=== PATIENT | male | born 1960 | race Caucasian/White ===

== ENCOUNTER → 2020-11-08 | Outpatient (CLI) | payer BC ==
--- NOTE | 2020-11-08 14:10 | Diagnostic Imaging Report ---
Indication: Chronic cough. No prior studies are available for comparison. Heart size normal. There is an area of linear atelectasis or scarring in the left base. Otherwise the lungs are clear. The pulmonary vascularity is normal. There is no effusion or pneumothorax. IMPRESSION: Linear scarring or atelectasis in the lingula. No other significant abnormality is detected. Dictated by: Dictated on workstation # [id number]
== END ==
LOC: RAD 13:02
PROVIDERS: ATTEND Internal Medicine
DX: R05 Cough (principal)
CPT/HCPCS: 71046

== ENCOUNTER 2021-05-08 05:35 | Outpatient (CLI) | payer BC ==
[~2021-05-08] VITALS: Ht 185.5 cm; Wt 86.3 kg
[2021-05-08] MEDS ORDERED: LOSA1TAB20 PO (10:36)
[2021-05-08] MEDS ORDERED: OMEP20CA18 PO (10:36)
[2021-05-08] MEDS ORDERED: ATOR20TA66 PO (10:36)
== END 2021-05-08 14:05 ==
LOC: PREOP 05:35
PROVIDERS: ATTEND Internal Medicine
DX: Z01.818 Encounter for other preprocedural examination (principal)

== ENCOUNTER 2021-05-16 08:18 | Day surgery (SDC) | payer BC ==
--- NOTE | 2021-05-08 06:32 | HISTORY AND PHYSICAL ---
DATE OF SERVICE: COLONOSCOPY HISTORY AND PHYSICAL HISTORY OF PRESENT ILLNESS: The patient a 61-year-old white male referred by Dr. Aguayo for screening colonoscopy. He is not aware of any family history for colon cancer, so he is deemed to be of average risk. He reports that he generally feels well. He has had no bowel habit change. Denies melena, bright red blood per rectum or abdominal pain. He denies any problems with reflux. PAST MEDICAL HISTORY: Significant for hypertension, mixed hyperlipidemia without evidence for vascular disease and psoriasis. 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 Has a 40+ pack year smoking history, continues to smoke. Reports curtailed alcohol use 6 years ago. MEDICATIONS ON ADMISSION: Include omeprazole 20 mg daily, losartan/HCT 50/25 and simvastatin 20 mg daily. ALLERGIES: He reports no known drug allergies. FAMILY HISTORY: Father of apparent complications of aneurysm likely rupture of abdominal aneurysm, after heunderwent repair of a thoracic aortic aneurysm. He also had a history of lymphoma. REVIEW OF SYSTEMS: CONSTITUTIONAL: Denies night sweats, chills, fever, or change in weight. GASTROINTESTINAL: As noted in the HPI. PULMONARY: Denies cough, shortness of breath or wheezing. CARDIOVASCULAR: Denies chest pain, orthopnea, PND, pedal edema or syncope. PHYSICAL EXAMINATION: GENERAL: Reveals white male, appeared to be in no acute distress. VITAL SIGNS: Weight 191 pounds, blood pressure 130/80. HEENT: Unremarkable. Sclerae nonicteric. CHEST: Clear to auscultation. CARDIOVASCULAR: Reveals a regular rate and rhythm, very soft 1 to 2/6 systolic ejection murmur heard best over the aortic outflow tract without evidence for pulsus, parvus or tardus. No S3 or S4 noted. ABDOMEN: Soft, supple without mass, organomegaly or tenderness. No evidence for abdominal aortic aneurysm to palpation noted. No pain noted. No bruits noted. Bowel sounds positive in all 4 quadrants. EXTREMITIES: Reveal no cyanosis, clubbing or edema. ASSESSMENT AND PLAN: The patient is set up for screening colonoscopy. Prep instructions were given and questions were answered. I thank you for the referral of this pleasant gentleman. Job ID: [id number] DocumentID: [id number] Dictated Date: 05/01/2021 15:58:47 Make Ready Worker Date: 05/01/2021 17:11:57 Dictated By: TAVON VELASQUEZ MD MTDD
[~2021-05-16] VITALS: Ht 185.5 cm; Wt 86.3 kg
[2021-05-16] VITALS (7 sets, daily range): BP systolic 98–166; BP diastolic 60–93
[~2021-05-16 08:18] MED LIST: ATOR20TA66 PO; LOSA1TAB20 PO; OMEP20CA18 PO
[2021-05-16] MEDS ORDERED: LACTATED RINGERS 1,000 ML IV STA ×2 (08:22→08:31)
[2021-05-16] MEDS ORDERED: LIDOCAINE JELLY 2% 6 ML SYRINGE MM PRN ×2 (08:30→08:45)
[2021-05-16] MEDS ORDERED: LACTATED RINGERS 1,000 ML IV ONE (08:32)
[2021-05-16] MEDS ORDERED: PROPOFOL INJECTION 50 ML IV ONE (10:15)
--- NOTE | 2021-05-16 11:10 | Pre-Op Note & Conscious Sedat ---
Pre-Operative Progress Note H&P Reviewed The H&P was reviewed, patient examined and no changes noted. Date H&P Reviewed: May 16, 2021 Time H&P Reviewed: 09:30 Conscious Sedation Pre-Proced ASA Score 2 For ASA 3 and 4: Consider anesthesia and medical clearance. Also, for patients with a history of failed moderate sedation consider anesthesia. Airway Lungs Heart ASA score ASA 1: a normal healthy patient ASA 2: a patient with a mild systemic disease (mid diabetes, controlled hypertension, obesity ASA 3: a patient with a severe systemic disease that limits activity (angina, COPD, prior Myocardial infarction) ASA 4: a patient with an incapacitating disease that is a constant threat to life (CHF, renal failure) ASA 5: a moribund patient not expected to survive 24 hrs. (ruptured aneurysm) ASA 6: a declared brain- patient whose organs are being harvested. For emergent operations, add the letter E after the classification Mallampati Classification Grade 2 Sedation Plan Analgesia, Amnesia, Plan communicated to team members, Discussed options with patient/fam, Discussed risks with patient/fam The patient is an appropriate candidate to undergo the planned procedure, sedation, and anesthesia. The patient immediately re-assessed prior to indication. TAVON VELASQUEZ MD May 16, 2021 11:10
--- NOTE | 2021-05-16 12:46 | Anesthesia-General Post-Op ---
MAC Patient Condition Mental Status/LOC: Same as Preop Cardiovascular: Satisfactory Nausea/Vomiting: Absent Respiratory: Satisfactory Pain: Controlled Complications: Absent Post Op Complications Complications None Follow Up Care/Instructions Patient Instructions None needed. Anesthesiology Discharge Order Discharge Order Patient is doing well, no complaints, stable vital signs, no apparent adverse anesthesia problems. No complications reported per nursing. THELMA BERNSTEIN CRNA May 16, 2021 12:46
--- NOTE | 2021-05-16 15:35 | OPERATIVE REPORT ---
DATE OF SERVICE: COLONOSCOPY SUMMARY INDICATION FOR THE PROCEDURE: Screening colonoscopy. DESCRIPTION OF PROCEDURE: The patient was placed in the left lateral decubitus position. Prior to undergoing colonoscopy, digital rectal evaluation was performed. Anal sphincter tone was normal and the perianal reflexes intact. The colonoscope was then inserted into the rectum and under direct visualization advanced to cecum. The cecum was identified by identification of the cecal strap. Photographic documentation was obtained. Quality of prep was fair. On digital inspection, the prostate is mildly enlarged, anodular, no other abnormalities noted on digital inspection of anal canal or distal rectal vault. There was no evidence for internal or external hemorrhoids. The rectum was unremarkable. There was a small sessile proximal sigmoid polyp noted. It was biopsied, ablated and submitted for histopathology. Mild diverticular disease confined to the sigmoid colon was noted. No evidence for diverticulitis was present. The descending colon was unremarkable. Present in the proximal transverse colon was a diminutive 4 mm sessile polyp that was biopsied and ablated. The remainder of the transverse colon was unremarkable. Present in the proximal sigmoid colon was another 3 x 4 mm sessile polyp. It was photographed and biopsied and ablated as well with no subsequent blood loss. The cecum was unremarkable. ASSESSMENT: Three diminutive polyps were removed today via hot forceps from the proximal sigmoid colon, proximal transverse colon and mid ascending colon with no subsequent blood loss. As long as there are no surprise on histopathology report and the patient continues to report no family history for colon cancer, we would just advocate consideration for repeat screening colonoscopy in 10 years. Job ID: [id number] DocumentID: [id number] Dictated Date: 05/16/2021 10:50:33 Cloth Burler Date: 05/16/2021 15:35:22 Dictated By: TAVON VELASQUEZ MD
== END 2021-05-16 11:30 | disposition home or self-care (01) ==
LOC: ENDO 08:18
PROVIDERS: ATTEND Internal Medicine
DX: Z12.11 Encounter for screening for malignant neoplasm of colon (principal); K63.5 Polyp of colon; D12.2 Benign neoplasm of ascending colon; K63.89 Other specified diseases of intestine; K21.9 Gastro-esophageal reflux disease without esophagitis; D12.3 Benign neoplasm of transverse colon; K57.30 Diverticulosis of large intestine without perforation or abscess without bleeding; I10 Essential (primary) hypertension; E78.2 Mixed hyperlipidemia; E78.5 Hyperlipidemia, unspecified; F17.210 Nicotine dependence, cigarettes, uncomplicated; Z79.899 Other long term (current) drug therapy

== ENCOUNTER → 2022-03-05 | Outpatient (CLI) | payer BC ==
--- NOTE | 2022-03-05 14:13 | Diagnostic Imaging Report ---
INDICATION: Atherosclerotic disease. Claudication. FINDINGS: There is abnormally low ankle-brachial indices bilaterally at 0.55 right and 0.53 left. This suggests a significant degree of atherosclerosis and worrisome for either severe diffuse disease or focal stenosis/stenoses. A formal lower extremity arterial Doppler interrogation of the vascularity recommended. IMPRESSION: Grossly abnormally low bilateral resting ankle brachial indices, worrisome for significant disease. Dedicated formal arterial Doppler and ultrasound recommended. Dictated by: Dictated on workstation # [id number]
== END ==
LOC: RAD 12:30
PROVIDERS: ATTEND Internal Medicine
DX: I25.10 Atherosclerotic heart disease of native coronary artery without angina pectoris (principal); I73.9 Peripheral vascular disease, unspecified
CPT/HCPCS: 93922

== ENCOUNTER → 2022-03-18 | Outpatient (CLI) | payer BC ==
[~2022-03-18] MED LIST changes: +HOLD METFORMIN - RECEIVED CONTRAST 20 ML VIAL IV SCH; +IOHEXOL 350 MG/ML 100 ML (OMNIPAQUE 350) VIAL IV ONE; +NS 100 ML (IVPB) BAG IV ONE
[2022-03-18 14:24] LABS: CREATININE SERUM 1.2 MG/DL (0.60-1.30)
--- NOTE | 2022-03-18 16:39 | Diagnostic Imaging Report ---
INDICATION: Peripheral vascular disease. CTA of the aorta and pelvis and lower extremities performed with IV contrast bolus and axial slices and sagittal coronal MIPS reconstructions. There is no previous CTA for comparison. The visualized portions of the lung bases show some bibasilar atelectatic change. There is no pleural fluid. There is no free intraperitoneal air. The liver and spleen appear normal. There are numerous gallstones in the gallbladder. The adrenals and pancreas appear normal. The kidneys bilaterally are unremarkable. There is no retroperitoneal mass or adenopathy. There is no ascites or abnormal fluid collection. Visualized bowel loops appear normal. There is an old left-sided rib fracture. CTA images demonstrate variant celiac anatomy with separate takeoffs of the splenic artery and common hepatic artery from the aorta. The SMA is patent and without stenosis. The renal arteries are patent bilaterally. There is mild left renal artery narrowing. The distal aorta shows some eccentric calcified plaque but no aneurysm or dissection. The inferior mesenteric artery is patent. The common iliac arteries on both sides show some eccentric plaquing but no high-grade stenosis. The internal and external iliac arteries on both sides are patent. There is about 60% focal stenosis of the left external iliac artery. There is about 50% stenosis of the right external iliac artery in its midportion. On the right side, the common femoral artery is patent. There is a tight stenosis of the proximal SFA with short segment occlusion of the proximal SFA in the right side. The right SFA reconstitutes in the proximal thigh. Profundus femoris artery is patent. There is diffuse disease throughout the right distal SFA, with focal high-grade stenosis above the adductor canal. The right popliteal artery is patent. Right trifurcation and tibioperoneal trunk are patent. The anterior vertebral artery and posterior tibial artery and peroneal artery are patent down to the lower catheter not well seen distally due to contrast dilution. On the left side, the common femoral artery is patent. Profunda femoris artery is patent. The SFA is occluded proximally and refills at the level of the adductor canal. The left popliteal artery is patent. Left trifurcation and tibioperoneal trunk are patent. The anterior tibial artery, peroneal artery, and posterior tibial artery are patent in the upper calf, posterior tibial artery occludes at the mid calf. IMPRESSION: Peripheral vascular disease as described above. There are moderate stenoses of the external iliac arteries and both sides. On the right 2nd there are multilevel stenoses in the SFA with focal short segment occlusion proximally. On the left side, there is occlusion of the left SFA proximally with refilling of the abductor canal via collaterals. There is occlusion of the left posterior tibial artery in the mid calf. Incidental finding of numerous gallstones noted. Dictated by: Dictated on workstation # [id number]
== END ==
LOC: CARD 13:46
PROVIDERS: ATTEND Internal Medicine Cardiovascular Disease
DX: I74.5 Embolism and thrombosis of iliac artery (principal); I70.202 Unspecified atherosclerosis of native arteries of extremities, left leg; J98.11 Atelectasis; K80.80 Other cholelithiasis without obstruction
CPT/HCPCS: 36415; 75635; 82565; 84520; 93306

== ENCOUNTER → 2022-03-20 | Outpatient (CLI) | payer BC ==
[~2022-03-20] MED LIST changes: +ASPI-1238 PO; +CATHETER FLUSH 10 ML SYR IV PRN; +CLOB15CR3 TP; +CLOP75TA69 PO
--- NOTE | 2022-03-20 12:49 | Diagnostic Imaging Report ---
PROCEDURE: CT angiography of the chest with contrast., 03/20/2022. TECHNIQUE: Multiple contiguous axial images were obtained through the chest after uneventful bolus administration of intravenous contrast. 3D reconstructed CTA MIP acquisitions were also performed. Auto Exposure Controls were utilized during the CT exam to meet ALARA standards for radiation dose reduction. INDICATION: Question peripheral vascular disease. FINDINGS: There is atherosclerotic disease within the aorta and its branches. No significant stenosis is appreciated. There is no evidence for dissection or aneurysmal dilatation. Within the upper abdomen at the origin of the hepatic and splenic arteries, there are separate origins for the hepatic and splenic arteries with the conjoined celiac artery not present consistent with a congenital anomaly. Visualized SMA appears patent. There are no central or proximal segmental pulmonary emboli. There is no mediastinal or hilar adenopathy. No pericardial or pleural effusions. Scattered atelectasis and/or scarring seen within the lungs. No suspicious masses or nodules appreciated. Multiple displaced old rib fractures noted on the left. Adjacent pleural thickening noted. There is no acute osseous abnormality. The visualized upper abdominal structures demonstrate hepatic steatosis. There are multiple stones within the gallbladder with no surrounding inflammatory change appreciated. Cystic lesions in the kidneys somewhat small for characterization. Remaining structures unremarkable. IMPRESSION: 1. Atherosclerotic disease as noted above. No dissection or aneurysmal dilatation appreciated. 2. No evidence for a pulmonary embolus. 3. Scar or atelectasis scattered throughout the lungs with pleural thickening on the left adjacent to old rib fractures incompletely fused. 4. Other findings, as above. Dictated by: Dictated on workstation # [id number]
== END ==
LOC: RAD 11:15
PROVIDERS: ATTEND Internal Medicine Cardiovascular Disease
DX: I25.10 Atherosclerotic heart disease of native coronary artery without angina pectoris (principal); J98.11 Atelectasis; J98.4 Other disorders of lung; K80.20 Calculus of gallbladder without cholecystitis without obstruction; N28.1 Cyst of kidney, acquired; I73.9 Peripheral vascular disease, unspecified
CPT/HCPCS: 71275

== ENCOUNTER 2022-03-24 10:00 | Day surgery (SDC) | payer BC ==
[~2022-03-24] VITALS: Ht 185.4 cm; Wt 91.2 kg
[~2022-03-24 10:00] MED LIST changes: -ASPI-1238 PO; -CATHETER FLUSH 10 ML SYR IV PRN; -CLOB15CR3 TP; -CLOP75TA69 PO; -HOLD METFORMIN - RECEIVED CONTRAST 20 ML VIAL IV SCH; -IOHEXOL 350 MG/ML 100 ML (OMNIPAQUE 350) VIAL IV ONE; -NS 100 ML (IVPB) BAG IV ONE
[2022-03-24] MEDS ORDERED: LIDOCAINE 1% INJ 20 ML VIAL ONE (10:29)
[2022-03-24] MEDS ORDERED: HEParin (CATH LAB) 2,000 ML IV ONE (10:29)
[2022-03-24] MEDS ORDERED: NS IV 1000 ML 1,000 ML IV SCH (10:30)
[2022-03-24] MEDS ORDERED: NS IV 1000 ML 1,000 ML ONE (10:30)
[2022-03-24 10:40] VITALS: BP 168/80
[2022-03-24 10:58] LABS: HEMATOCRIT 48 % (40-54); HEMOGLOBIN 16.1 g/dL (13.3-17.7); MEAN CORPUSCULAR HEMOGLOBIN 31 pg (25-34); MEAN CORPUSCULAR HGB CONC 34 g/dL (32-36); MEAN CORPUSCULAR VOLUME 93 fL (80-99); PLATELET COUNT 280 10^3/uL (130-400); WHITE BLOOD COUNT 10.7 10^3/uL (4.3-11.0)
[2022-03-24 11:12] LABS: INR 0.9 (0.8-1.4)
[2022-03-24] MEDS ORDERED: CLOB15CR3 TP (11:14)
[2022-03-24] MEDS ORDERED: ASPI-1238 PO (11:14)
[2022-03-24 11:22] LABS: ALBUMIN 4.4 GM/DL (3.2-4.5); BILIRUBIN,TOTAL 0.5 MG/DL (0.1-1.0); CALCIUM 9.3 MG/DL (8.5-10.1); CREATININE SERUM 1.15 MG/DL (0.60-1.30); POTASSIUM 4.3 MMOL/L (3.6-5.0); TOTAL PROTEIN 7.6 GM/DL (6.4-8.2)
[2022-03-24] MEDS ORDERED: MIDAZOLAM 5 MG/5 ML (VERSED) VIAL ONE (11:46)
[2022-03-24] MEDS ORDERED: fentaNYL INJ 100 MCG/2 ML AMP ONE ×2 (11:46→15:35)
--- NOTE | 2022-03-24 12:45 | Cardiac Procedure Note-CS/ASA ---
Pre-Procedure Note Pre-Op Procedure Note H&P Reviewed The H&P was reviewed, patient examined and no changes noted. Date H&P Reviewed: Mar 24, 2022 Time H&P Reviewed: 12:00 Conscious Sedation Pre-Proced Time 12:00 ASA Score 3 For ASA 3 and 4: Consider anesthesia and medical clearance. Also, for patients with a history of failed moderate sedation consider anesthesia. Airway Lungs Heart ASA score ASA 1: a normal healthy patient ASA 2: a patient with a mild systemic disease (mid diabetes, controlled hypertension, obesity ASA 3: a patient with a severe systemic disease that limits activity (angina, COPD, prior Myocardial infarction) ASA 4: a patient with an incapacitating disease that is a constant threat to life (CHF, renal failure) ASA 5: a moribund patient not expected to survive 24 hrs. (ruptured aneurysm) ASA 6: a declared brain- patient whose organs are being harvested. For emergent operations, add the letter E after the classification Mallampati Classification Grade 2 Sedation Plan Analgesia, Amnesia, Plan communicated to team members The patient is an appropriate candidate to undergo the planned procedure, sedation, and anesthesia. The patient immediately re-assessed prior to indication. PHILIPPE DSOUZA MD FACP FAC CCDS Mar 24, 2022 12:45
[2022-03-24] MEDS ORDERED: HEParin 1000 UNIT/ML (10ML VIAL) FOR BOLUS ONE (12:54)
[2022-03-24] MEDS ORDERED: CLOPIDOGREL 300 MG (PLAVIX) TABLET PO ONE (14:00)
[2022-03-24] MEDS ORDERED: ASPIRIN 81 MG CHEW (CHILDREN'S ASA) ONE (14:00)
[2022-03-24 14:30] VITALS: BP 159/79
[2022-03-24] MEDS ORDERED: PATIENT MAY USE OWN MEDS, ALL PO SCH (14:45)
[2022-03-24] MEDS ORDERED: CLOP75TA69 PO (14:49)
--- NOTE | 2022-03-24 14:50 | Discharge Inst-Post CATH ---
Discharge Inst-CATH/EP Post Cardiac Cath/EP D/C Inst Follow Up/Plan F/u with Dr Maldonado in 1-2 weeks ACTIVITY * Go Home directly and rest. * Limit activity of the leg (or wrist if it was used) for 7 days including aerobics, swimming, jogging, bicycling, etc. * Restrict stair-climbing for 7 days if possible, if not, climb up with your non-cath leg, then bring together on the same step. * Avoid lifting, pushing, pulling or excessive movement of the affected extremity for 7 days. * Customary sexual activity may be resumed after 2 days-use caution not to use a position that strains or causes pain to the affected extremity. * No driving for 24 hours. * NO SMOKING. * Avoid straining for bowel movements for 7 days. * Gentle walking on level ground is allowed. * Returning to work will depend on the type of procedure and the results. Your doctor will discuss this with you. CALL YOUR DOCTOR FOR ANY OF THE FOLLOWING: *If bleeding from the puncture site occurs- Apply gentle pressure to site with clean cloth and call your doctor or EMS. * If a knot or lump forms under the skin, increases in size, or causes pain. * If bruising appears to be worsening or moving further down your leg instead of disappearing. * Temperature above 101 F. CARE OF YOUR GROIN INCISION; * Bruising or purple discoloration of the skin near the puncture site is common. * You may shower only, no bathtub bathing for 5 days. Be careful to avoid slipping as your leg may feel stiff. * If a closure device was used on your femoral artery, please see the attached guide regarding care of the device and your leg. * Leave dressing on FOR 24 hours. CARE OF YOUR WRIST INCISION; * Bruising or purple discoloration of the skin near the puncture site is common. * You may shower. * DO NOT submerge wrist. * Leave dressing on FOR 24 hours. PHILIPPE DSOUZA MD [facility] Mar 24, 2022 14:50
--- NOTE | 2022-03-24 14:50 | Discharge Inst-Cardiology ---
Discharge Inst-Cardiac Discharge Medications New Medications: Clopidogrel Bisulfate (Plavix) 75 Mg Tablet 75 MG PO DAILY for 30 Days, #30 TAB 5 Refills Continued Medications: Aspirin (Aspirin EC) 81 Mg Tablet.dr 81 MG PO HS, TAB Atorvastatin Calcium (Atorvastatin Calcium) 20 Mg Tablet 20 MG PO HS, TAB Clobetasol Propionate/Emoll (Clobetasol Emollient 0.05% Crm) 0.05 % Cream..g. 1 APPLIC TP DAILY PRN for IRRITATION, EA Losartan/Hydrochlorothiazide (Losartan-Hctz 50-12.5 mg Tab) 1 Each Tablet 1 EACH PO DAILY, TAB Omeprazole (Omeprazole) 20 Mg Capsule.dr 20 MG PO Q48H, CAP Patient Instructions Patient Instructions: NO SMOKING PHILIPPE DSOUZA MD FACP FAC CCDS Mar 24, 2022 14:50
[2022-03-24] MEDS ORDERED: ATROPINE INJECTION 1 MG/10 ML SYR (ABBOTT) ONE (15:35)
[2022-03-24 15:53] VITALS: BP 144/73
[2022-03-24] MEDS: NS IV 1000 ML 1,000 ML IV SCH ×2 (16:34→17:35)
[2022-03-24 19:47] VITALS: BP 168/76
--- NOTE | 2022-03-24 19:47 | OPERATIVE REPORT ---
DATE OF SERVICE: 03/24/2022 PERIPHERAL ANGIOGRAPHY AND INTERVENTION The patient is a 62-year-old gentleman who has bilateral leg claudication. This has been progressive for several months to a year or two. Currently, the leg claudication is most pronounced in the right leg. He was brought on with walking less than half a block. CT angiography of the aorta and peripheral leg arteries has indicated severe disease of both superficial femoral arteries. Because of continuing symptoms, peripheral intervention, it was recommended, and informed consent was obtained. DESCRIPTION OF PROCEDURE: He was brought to the cardiac catheterization laboratory in a fasting state. The left groin was prepared and draped in the usual sterile fashion. Lidocaine 1% was used for local anesthesia. Modified Seldinger technique was used to advance a 5-[place] Islander sheath in the right femoral artery. We used a 5-[place] crossover catheter to carry out angiography of the right iliac artery down to the level of the common femoral bifurcation. Subsequently, we advanced a straight catheter over a wire into the right common femoral and selective angiography was performed of the right leg arteries. This catheter was then used to advance a iAmplify wire and the catheter and the sheath were removed and we then advanced a 45 cm 6-[place]er sheath on that wire and the tip was placed in the right external iliac artery. This enabled intervention that is described below. PERCUTANEOUS INTERVENTION TO THE ARTERIAL SYSTEM OF THE RIGHT LOWER LIMB: Selective angiography indicated that there was near total occlusion of the superficial femoral artery in its proximal portion on the right side. There was 99% stenosis of the right deep femoral artery as well. We advanced a Command wire across the occlusion in the right superficial femoral artery and the tip of the wire was placed in the popliteal artery. We advanced another Command wire into the deep femoral artery and the tip of the wire was placed in the distal vessel. We carried out balloon angioplasty with a 6.0 x 40 mm balloon to the ostium of the deep femoral artery first. This reduced the stenosis from 99% to less than 50% and flow throughout the vessel was normal. We then carried out balloon angioplasty of the right superficial femoral artery with a 5.0 x 200 mm balloon. Multiple balloon inflations were carried out in the proximal, mid and distal superficial femoral. This reduced the stenosis from 100% to less than 40% in the proximal portion of the right superficial femoral. The patient tolerated the procedure well. Angioplasty equipment was removed. The left femoral sheath was exchanged over a wire for a short 6-[place]er sheath and the sheath was sutured in place for manual sheath removal on the floor. He tolerated the procedure well. ANGIOGRAPHY OF THE ARTERIAL CIRCULATION OF THE RIGHT LOWER LIMB: Angiography indicated that the common iliac artery was intact. There was 50% stenosis of the external iliac on the right side. The common femoral was intact. The superficial femoral was occluded in its proximal portion. The deep femoral had 99% ostial stenosis. Following balloon angioplasty, there is less than 40% proximal stenosis of the right superficial femoral and less than 50% stenosis of the ostium of the right deep femoral continues as the right popliteal and there is a 3-vessel runoff. CONCLUSIONS: 1. Successful balloon angioplasty to right superficial femoral, which reduced a near total occlusion to less than 40% residual. 2. Successful balloon angioplasty to 99% ostial stenosis of the right deep femoral with reduction of stenosis to less than 50%. DISCUSSION AND RECOMMENDATIONS: He has been advised to quit smoking immediately and completely. Dual antiplatelet therapy has been added to the regimen. Outpatient followup is advised. He is known to have complete occlusion of the left superficial femoral, based on CT angiography of 03/18/2022. This is a chronic total occlusion. Percutaneous intervention to distal vessel will be attempted at a later date. Job ID: [id number] DocumentID: [id number] Dictated Date: 03/24/2022 14:35:14 Electroplater Date: 03/24/2022 19:46:11 Dictated By: PHILIPPE DSOUZA MD, MA, FACP, FACC,
== END 2022-03-24 21:00 | disposition home or self-care (01) ==
LOC: CATH 10:00 → CSD 14:26 → CATH 21:00
PROVIDERS: ATTEND Internal Medicine Cardiovascular Disease
DX: I70.213 Atherosclerosis of native arteries of extremities with intermittent claudication, bilateral legs (principal); I10 Essential (primary) hypertension; E78.2 Mixed hyperlipidemia; I44.0 Atrioventricular block, first degree; E66.3 Overweight; F17.210 Nicotine dependence, cigarettes, uncomplicated; Z79.82 Long term (current) use of aspirin
CPT/HCPCS: 36247; 37224; 75710; 80053; 80061; 85027; 85610; 85730; 87081; 93005; C1725 ×2; C1769 ×3; C1887 ×2; C1894 ×2; 36415